=== PATIENT | female | born 1990 | race African-American/Black ===

== ENCOUNTER 2020-07-08 10:05 | Emergency (ER) | payer OTHER ==
[~2020-07-08] VITALS: Ht 165.1 cm; Wt 117.9 kg
[2020-07-08] MEDS ORDERED: FLONASE 0.05%50 MCG NARES (10:15)
[2020-07-08] MEDS ORDERED: CYCLOBENZAPRINE5 MG PO (13:51)
[2020-07-08] MEDS ORDERED: NORCO5 PO (13:51)
[2020-07-08 14:06] VITALS: BP 107/62
== END 2020-07-08 14:07 | disposition home or self-care (01) ==
LOC: ER 10:05
DX: S16.1XXA Strain of muscle, fascia and tendon at neck level, initial encounter (principal); M25.511 Pain in right shoulder; J45.909 Unspecified asthma, uncomplicated; Z79.899 Other long term (current) drug therapy; V49.88XA Car occupant (driver) (passenger) injured in other specified transport accidents, initial encounter; Y93.89 Activity, other specified; Y92.413 State road as the place of occurrence of the external cause; Y99.9 Unspecified external cause status